=== PATIENT | male | born 1945 | race Two or more races ===

== ENCOUNTER 2017-11-23 07:47 | Outpatient (CLI) | payer OTHER | END 2017-11-23 08:03 | disposition home or self-care (01) | LOC: SONOGRAMA 07:47 | DX: R22.2 Localized swelling, mass and lump, trunk (principal) ==

== ENCOUNTER 2019-01-24 08:10 | Outpatient (CLI) | payer OTHER | END 2019-01-24 09:21 | disposition home or self-care (01) | LOC: SONOGRAMA 08:10 | DX: E04.1 Nontoxic single thyroid nodule (principal) ==